=== PATIENT | male | born 1995 | race Caucasian/White ===

== ENCOUNTER 2016-08-24 19:22 | Emergency (ER) | payer SELFPAY ==
[~2016-08-24 19:22] MED LIST: AMOXICILLIN500 M1 PO; AMOXIL500 M1 PO; AUGMENTIN PO; BACTROBAN15 GM TOP; CLEOCIN150 M1 PO; IBUPROFEN600 MG PO; IBUPROFEN800 MG PO; KEFLEX500 M1 PO; NO MEDICATIONS; PHENERGAN25 MG PO; PREDNISONE10 MG/DOSE PO; VIBRAMYCIN100 M1 PO; ZYRTEC10 M2 PO
== END 2016-08-24 21:00 | disposition left against medical advice (07) ==
LOC: CED 19:22
DX: Z53.21 Procedure and treatment not carried out due to patient leaving prior to being seen by health care provider (principal)
CPT/HCPCS: 82947

== ENCOUNTER 2016-11-18 12:17 | Emergency (ER) | payer SELFPAY ==
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
== END 2016-11-18 20:17 | disposition hospice, home (50) ==
LOC: SED 12:17
DX: S09.90XA Unspecified injury of head, initial encounter (principal); S01.81XA Laceration without foreign body of other part of head, initial encounter; S40.012A Contusion of left shoulder, initial encounter; V19.9XXA Pedal cyclist (driver) (passenger) injured in unspecified traffic accident, initial encounter; Y92.009 Unspecified place in unspecified non-institutional (private) residence as the place of occurrence of the external cause
CPT/HCPCS: 70450; 70486; 73030; 96372; 99284; J0690

== ENCOUNTER 2016-12-02 13:10 | Emergency (ER) | payer SELFPAY ==
[~2016-12-02] VITALS: Ht 177.8 cm; Wt 71.7 kg
== END 2016-12-02 14:06 | disposition home or self-care (01) ==
LOC: SED 13:10
DX: T78.40XA Allergy, unspecified, initial encounter (principal); R21 Rash and other nonspecific skin eruption
CPT/HCPCS: 99283